=== PATIENT | male | born 1980 | race Caucasian/White ===

== ENCOUNTER 2016-11-03 17:25 | Inpatient (IN) | payer MEDICAID ==
[2016-11-03] MEDS ORDERED: NS 1,000 ML IV ONE (17:50)
[2016-11-03] MEDS ORDERED: HYDROmorphONE/DILAUDID 1 MG/ML SYR IVP ONE (17:50)
[2016-11-03] MEDS ORDERED: ONDANSETRON 4 MG/2 ML VIAL ONE ×2 (17:52→21:35)
[2016-11-03] MEDS ORDERED: PIPERACILLIN/TAZO 3.375 GM/DEX 50 ML IV ONE ×2 (18:09→18:30)
[2016-11-03] MEDS ORDERED: VANCOMYCIN HCL/NORMAL SALINE 250 ML IV ONE (18:09)
[2016-11-03 18:13] LABS: % IMMATURE GRANULYOCYTES 0.6 % (0.0-1.1); ABSOLUTE IMMATURE GRANULOCYTES 0.06 10^3/uL (0.00-0.10); ADD DIFF? NO; ADD MORPH? NO; ADD SCAN? NO; ATYPICAL LYMPHOCYTE FLAG 30 (0-99); FRAGMENT RBC FLAG 0 (0-99); HEMATOCRIT 37.1 % (40.0-51.0); HEMOGLOBIN 12.6 g/dL (13.7-17.5); LEFT SHIFT FLG 40 (0-99); LIPEMIA HEMOLYSIS FLAG 90 (0-99); MEAN CELL VOLUME 91.4 fL (81.5-99.8); MEAN PLATELET VOLUME 10.3 fL (8.7-11.7); PLATELET CLUMPS FLAG 0 (0-99); PLATELET COUNT 153 10^3/uL (150-400); RED BLOOD CELL COUNT 4.06 10^6/uL (4.40-6.38); RED CELL DISTRIBUTION WIDTH 13.5 % (11.5-15.2)
[2016-11-03] MEDS ORDERED: IOPAMIDOL (ISOVUE-300) 100 ML BTL IV ONE ×3 (18:15→19:15)
[2016-11-03 18:28] LABS: ANION GAP 9 mEq/L (8-16); CALCIUM 8.6 mg/dL (8.5-10.4); CARBON DIOXIDE 24 mEq/l (22-31); CHLORIDE 103 mEq/L (97-110); CREATININE 0.8 mg/dL (0.7-1.3); GLOMERULAR FILTRATION RATE > 60; GLUCOSE 120 mg/dL (70-100); POTASSIUM 3.4 mEq/L (3.5-5.2); SODIUM 136 mEq/L (134-144)
[2016-11-03] MEDS ORDERED: PIPERACILLIN SODIUM/TAZOBACTAM 3.375 GM in D5W 50 ML IV ONE (18:30)
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
[2016-11-03] MEDS ORDERED: BUPIVACAINE/EPI 0.5% 30 ML SDV ONE (20:27)
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
[2016-11-03] MEDS ORDERED: CITRIC ACID/SODIUM CITRATE 30 ML UDCUP ONE (20:53)
[2016-11-03] MEDS ORDERED: MIDAZOLAM 2 MG/2 ML VIAL ONE (20:55)
[2016-11-03] MEDS ORDERED: CITRIC ACID/SODIUM CITRATE 30 ML UDCUP PO ONE (21:00)
[2016-11-03] MEDS ORDERED: fentaNYL 250 MCG/5 ML INJ ONE (21:03)
[2016-11-03] MEDS ORDERED: PROPOFOL 200 MG/20 ML VIAL ONE (21:04)
[2016-11-03] MEDS ORDERED: ROCURONIUM 50 MG/5 ML VIAL ONE (21:07)
[2016-11-03] MEDS ORDERED: DEXAMETHASONE 4 MG/ML VIAL ONE (21:35)
[2016-11-03] MEDS ORDERED: SUGAMMADEX SODIUM 200 MG/2 ML VIAL IVP ONE (21:44)
[2016-11-03] MEDS ORDERED: ONDANSETRON 4 MG/2 ML VIAL IVP PRN (22:20)
[2016-11-03] MEDS ORDERED: ACETAMINOPHEN 325 MG TAB PO PRN (22:20)
[2016-11-03] MEDS ORDERED: LACTULOSE 20 GM/30 ML UDCUP PO PRN (22:20)
[2016-11-03] MEDS ORDERED: BISACODYL 10 MG SUPP PR PRN (22:20)
[2016-11-03] MEDS ORDERED: POLYETHYLENE GLYCOL 3350 17 GM PKT PO PRN (22:20)
[2016-11-03] MEDS ORDERED: MAGNESIUM HYDROXIDE 30 ML UDCUP PO PRN (22:20)
[2016-11-03] MEDS ORDERED: fentaNYL 100 MCG/2 ML INJ ONE (22:47)
--- NOTE | 2016-11-03 22:56 | POSTOPPROG ---
Post Op Note Date of Operation: 11/03/16 Surgeon: Eleonora Cox Anesthesiologist: daniel Anesthesia: GET(General Endotracheal) Pre-op Diagnosis: perirectal abscess Post-op Diagnosis: same Indication: 36 yo with perirectal abscess Procedure: eua and drainage of perirectal abscess Findings: depth greater than 10 cm goes anterior and posterior Inf/Abcess present in the surg proc area at time of surgery?: Yes Depth: Superfical (Skin SQ) EBL: Minimal Specimen(s): fluid for micro
[2016-11-03] MEDS: OXYCODONE/APAP 5/325 TAB PO PRN (23:29)
[2016-11-04] MEDS ORDERED: PIPERACILLIN/TAZO 3.375 GM/DEX 50 ML IV SCH
[2016-11-04] MEDS: PIPERACILLIN SODIUM/TAZOBACTAM 3.375 GM in D5W 50 ML IV SCH ×4 (00:04→17:48)
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
[2016-11-04] MEDS: OXYCODONE/APAP 5/325 TAB PO PRN (04:44)
[2016-11-04 05:25] LABS: % IMMATURE GRANULYOCYTES 0.3 % (0.0-1.1); ABSOLUTE IMMATURE GRANULOCYTES 0.03 10^3/uL (0.00-0.10); ADD DIFF? NO; ADD MORPH? NO; ADD SCAN? NO; ATYPICAL LYMPHOCYTE FLAG 40 (0-99); FRAGMENT RBC FLAG 0 (0-99); HEMATOCRIT 36.6 % (40.0-51.0); LEFT SHIFT FLG 80 (0-99); LIPEMIA HEMOLYSIS FLAG 80 (0-99); MEAN CELL HEMOGLOBIN 29.9 pg (27.9-34.1); MEAN CELL HEMOGLOBIN CONCENTR. 32.8 g/dL (32.4-36.7); MEAN CELL VOLUME 91.3 fL (81.5-99.8); MEAN PLATELET VOLUME 10.9 fL (8.7-11.7); PLATELET CLUMPS FLAG 0 (0-99); PLATELET COUNT 160 10^3/uL (150-400); RED BLOOD CELL COUNT 4.01 10^6/uL (4.40-6.38); RED CELL DISTRIBUTION WIDTH 13.6 % (11.5-15.2)
[2016-11-04 05:27] LABS: ANION GAP 8 mEq/L (8-16); CALCIUM 8.6 mg/dL (8.5-10.4); CARBON DIOXIDE 25 mEq/l (22-31); CHLORIDE 106 mEq/L (97-110); CREATININE 0.8 mg/dL (0.7-1.3); GLOMERULAR FILTRATION RATE > 60; GLUCOSE 166 mg/dL (70-100); POTASSIUM 4.6 mEq/L (3.5-5.2); SODIUM 139 mEq/L (134-144)
[2016-11-04] MEDS: VANCOMYCIN 1.25 GM in D5W 250 ML IV SCH ×2 (06:26→17:57)
[2016-11-04] MEDS: SENNOSIDES/DOCUSATE SODIUM TAB PO SCH ×2 (09:06→20:49)
[2016-11-04] MEDS: HYDROCODONE/APAP 5/325 TAB PO PRN ×3 (12:33→20:48)
--- NOTE | 2016-11-04 15:39 | SOAPPROG ---
SOAP Progress Note Assessment/Plan: Assessment: s/p drainage of large perirectal abscess 10 cm deep [place] in place may shower Change abd prn Still with some erythema and induration - continue zosyn IV drug abuse (sober x 6 days but had syringe of meth in underware on arrival) Discussion regarding po pain meds vs IV pain meds. Encouraged po. Stated would send home with rx for narcotics NO refills and antibiotics He has money for scripts needing erythema and induration to improve prior to discharge S: Feeling better O: Irrigated wound purulent drainage erythema and induration improving Plan: 11/04/16 15:35 Objective: Vital Signs Temp Pulse Resp BP Pulse Ox 36.9 C 57 L 15 95/56 L 96 11/04/16 12:50 11/04/16 12:50 11/04/16 12:50 11/04/16 12:50 11/04/16 12:50 Microbiology 11/03/16 21:40 Gram Stain - Final Buttock - Aspirate Laboratory Results 11/04/16 04:30 11/04/16 04:30 11/03/16 11/04/16 11/05/16 05:59 05:59 05:59 Intake Total 1715 Output Total 1010 300 Balance 705 -300 ICD10 Worksheet Patient Problems: Problems Problem Status Onset Abscess Acute Cellulitis of buttock Acute
[2016-11-05] MEDS: HYDROCODONE/APAP 5/325 TAB PO PRN ×5 (00:44→21:33)
[2016-11-05] MEDS: PIPERACILLIN SODIUM/TAZOBACTAM 3.375 GM in D5W 50 ML IV SCH ×3 (00:44→13:11)
[2016-11-05 06:06] LABS: % IMMATURE GRANULYOCYTES 0.5 % (0.0-1.1); ABSOLUTE IMMATURE GRANULOCYTES 0.04 10^3/uL (0.00-0.10); ADD DIFF? NO; ADD MORPH? NO; ADD SCAN? NO; ATYPICAL LYMPHOCYTE FLAG 90 (0-99); FRAGMENT RBC FLAG 0 (0-99); HEMOGLOBIN 11.5 g/dL (13.7-17.5); LEFT SHIFT FLG 30 (0-99); LIPEMIA HEMOLYSIS FLAG 80 (0-99); MEAN CELL HEMOGLOBIN 30.2 pg (27.9-34.1); MEAN CELL HEMOGLOBIN CONCENTR. 32.9 g/dL (32.4-36.7); MEAN CELL VOLUME 91.9 fL (81.5-99.8); MEAN PLATELET VOLUME 10.9 fL (8.7-11.7); PLATELET CLUMPS FLAG 10 (0-99); PLATELET COUNT 174 10^3/uL (150-400); RED BLOOD CELL COUNT 3.81 10^6/uL (4.40-6.38); RED CELL DISTRIBUTION WIDTH 13.5 % (11.5-15.2)
[2016-11-05] MEDS: VANCOMYCIN 1.25 GM in D5W 250 ML IV SCH (06:26)
[2016-11-05] MEDS: SENNOSIDES/DOCUSATE SODIUM TAB PO SCH ×2 (09:30→21:32)
[2016-11-05] MEDS: HYDROmorphONE/DILAUDID 1 MG/ML SYR IVP PRN ×2 (09:50→21:11)
--- NOTE | 2016-11-05 12:31 | SOAPPROG ---
SOAP Progress Note Assessment/Plan: Assessment: 36yo M s/p drainage for large perirectal abscess, 10cm deep and tracking anteriorly towards scrotum, MRSA [place] in place Erythema and induration improved Zosyn and Vanco, awaiting final cultures may shower Change abd prn Ortho consult for shoulder separation, healed nonunion fracture Homelessness - dispo planning with case management H/o IVDU, strongly encouraged to avoid IV pain meds S: Feeling better, reports pain in his right shoulder and legs. O: Laying in bed, NAD obvious R shoulder deformity Perirectal incision with minimal erythema and induration. Mildly tender to palpation. Purulent drainage Objective: Vital Signs Temp Pulse Resp BP Pulse Ox 36.3 C 62 16 98/67 L 100 11/05/16 08:15 11/05/16 08:15 11/05/16 08:15 11/05/16 08:15 11/05/16 08:15 Microbiology 11/03/16 21:40 Gram Stain - Final Buttock - Aspirate Laboratory Results 11/05/16 05:00 11/04/16 04:30 11/04/16 11/05/16 11/06/16 05:59 05:59 05:59 Intake Total 1715 1100 1008 Output Total 1010 1300 650 Balance 705 -200 358 ICD10 Worksheet Patient Problems: Problems Problem Status Onset Abscess Acute Cellulitis of buttock Acute
[2016-11-05] MEDS: IBUPROFEN 600 MG TAB PO PRN ×2 (13:13→21:33)
[2016-11-05] MEDS: VARENICLINE TARTRATE 0.5 MG TAB PO SCH (13:18)
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
[2016-11-05] MEDS: DOXYCYCLINE HYCLATE 100 MG CAP/TAB PO SCH (21:35)
[2016-11-06] MEDS: HYDROCODONE/APAP 5/325 TAB PO PRN ×3 (01:41→13:56)
[2016-11-06] MEDS: HYDROmorphONE/DILAUDID 1 MG/ML SYR IVP PRN ×2 (06:43→11:50)
[2016-11-06] MEDS: DOXYCYCLINE HYCLATE 100 MG CAP/TAB PO SCH (09:16)
[2016-11-06] MEDS: VARENICLINE TARTRATE 0.5 MG TAB PO SCH (09:16)
[2016-11-06] MEDS: SENNOSIDES/DOCUSATE SODIUM TAB PO SCH (09:16)
--- NOTE | 2016-11-06 12:12 | SOAPPROG ---
SOAP Progress Note Assessment/Plan: Assessment: 36yo M s/p drainage for large perirectal abscess, 10cm deep and tracking anteriorly towards scrotum, MRSA, h/o IVDU [place] in place Erythema and induration nearly resolved PO norco PO doxy may shower Change abd prn Dr. Mitchell recommended outpatient follow-up for AC separation, nonop at this time Ortho consult for shoulder separation, healed nonunion fracture Dispo: patient is homeless. Ready for d/c today. Will discuss dispo with case management. F/u 1 week, may shower. Seen with Dr. Cox S: Feeling better, a little more rectal pain today. no fevers or chills. O: Laying in bed, NAD obvious R shoulder deformity Perirectal incision with mild erythema and induration. Mildly tender to palpation. Purulent drainage. irrigated with NS 11/06/16 12:11 Objective: Vital Signs Temp Pulse Resp BP Pulse Ox 36.8 C 69 15 93/54 L 97 11/06/16 06:32 11/06/16 06:32 11/06/16 06:32 11/06/16 06:32 11/06/16 06:32 Microbiology 11/03/16 21:40 Gram Stain - Final Buttock - Aspirate Laboratory Results 11/05/16 05:00 11/04/16 04:30 11/05/16 11/06/16 11/07/16 05:59 05:59 05:59 Intake Total 1100 3308 Output Total 1300 3250 Balance -200 58 ICD10 Worksheet Patient Problems: Problems Problem Status Onset Abscess Acute Cellulitis of buttock Acute
[2016-11-06 15:20] VITALS: BP 101/65; PULSE 70; RESP 16; TEMP 97.7; O2SAT 96
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
== END 2016-11-06 16:19 | disposition home or self-care (01) | DRG 331 ==
LOC: EDUNIT# → F3N 23:03 → F1N 11-04 18:47
PROVIDERS: ADMIT Surgery; ATTEND Surgery
PROC: 0D9P00Z Drainage of Rectum with Drainage Device, Open Approach (ICD-10-PCS; principal; 2016-11-03 21:04)
PROC: 0D9P3ZX Drainage of Rectum, Percutaneous Approach, Diagnostic (ICD-10-PCS; principal; 2016-11-03 21:04)
DX: K61.1 Rectal abscess (principal); S43.101A Unspecified dislocation of right acromioclavicular joint, initial encounter; X58.XXXA Exposure to other specified factors, initial encounter; F17.210 Nicotine dependence, cigarettes, uncomplicated; Z59.0 Homelessness
CPT/HCPCS: 96365; J1100; J1170; J2250; J2405; J2543; J2704; J3010; J3370; Q9967

== ENCOUNTER 2016-11-09 19:08 | Emergency (ER) | payer MEDICAID ==
[2016-11-09] MEDS ORDERED: fentaNYL 100 MCG/2 ML INJ ONE (19:09)
[2016-11-09 19:25] VITALS: TEMP 97.5
--- NOTE | 2016-11-09 19:49 | EDPHY ---
H & P Time Seen by Provider: 11/09/16 19:10 HPI/ROS: CHIEF COMPLAINT: Drain removal HISTORY OF PRESENT ILLNESS: 36-year-old homeless male presents to the emergency department by ambulance requesting removal of drain from a perirectal abscess. The patient was admitted to the hospital and had incision and drainage of his perirectal abscess by Dr. Eleonora Cox in the OR on November 03, 2016. He denies abdominal pain. He has been taking his antibiotics as prescribed. It was MRSA positive. REVIEW OF SYSTEMS: Constitutional: No fever, no chills. Eyes: No double or blurry vision. ENT: No sore throat. Respiratory: No cough, no shortness of breath. Cardiac: No chest pain. Gastrointestinal: No abdominal pain, vomiting or diarrhea. Genitourinary: No dysuria. Musculoskeletal: No neck or back pain. Skin: No rashes. Neurological: No headache. Past Medical/Surgical History: Perirectal abscess drained November 03, 2016 Social History: Homeless Smoking Status: Heavy smoker Physical Exam: General Appearance: Alert, no distress. He smells strongly of alcohol. Eyes: Pupils equal and round. Extraocular motions are all intact. ENT: Mouth: Mucous membranes moist. Respiratory: No wheezing, rhonchi, or rales, lungs are clear to auscultation. Cardiovascular: Regular rate and rhythm. Gastrointestinal: Abdomen is soft and nontender, no masses, no rebound or guarding, bowel sounds normal. Neurological: Alert and oriented x 3, cranial nerves II through XII grossly intact Skin: The patient has a [place] drain sutured in his right perirectal abscess. No drainage from the wound currently. No induration. Minimally tender to palpate. Warm and dry, no rashes. Musculoskeletal: Nontender to palpate along the cervical, thoracic or lumbar spine. Neck is supple. Extremities: Full range of motion and no peripheral edema. Psychiatric: Patient is oriented X 3, there is no agitation. Constitutional: Initial Vital Signs Temperature (C) 36.4 C 11/09/16 19:23 Heart Rate 72 11/09/16 19:23 Respiratory Rate 20 11/09/16 19:23 Blood Pressure 109/69 11/09/16 19:23 O2 Sat (%) 95 11/09/16 19:23 O2 Delivery Mode Room Air Allergies/Adverse Reactions: Sulfa (Sulfonamide Antibiotics) Allergy (Verified 11/09/16 19:23) Home Medications: Medication Instructions Recorded Doxycycline Hyclate [Vibramycin 100 mg PO BID #30 capsule 11/06/16 100 MG (*)] Hydrocodone/APAP 5/325 [[place] 1 - 2 tab PO Q4HRS PRN #30 tab 11/06/16 5/325 (*)] Medical Decision Making ED Course/Re-evaluation: ETOH breath was 0.195 36-year-old male presents for drain removal. The drain was easily removed after the sutures were removed. No further drainage. No packing placed. Patient was encouraged to continue antibiotics as prescribed. Also instructed to follow up with Dr. Eleonora Cox. The patient is currently staying in a respite bed at the residential that was arranged by case management. Differential Diagnosis: Including but not limited to perirectal abscess, fistula, cellulitis, sepsis, alcohol intoxication Departure - Departure Disposition: Home, Routine, Self-Care Clinical Impression: Recheck Perirectal abscess Condition: Good Instructions: Abscess Follow-up (ED) Additional Instructions: Your drain has been removed. Continue doxycycline as prescribed twice daily. Return to the emergency department if he developed increasing pain, further drainage from your wound, fever, or if you feel worse in any way. Referrals: Eleonora Cox MD [Medical Doctor] - 1-2 days without fail (General surgeon)
[2016-11-09 20:22] VITALS: BP 120/80; PULSE 76; RESP 12; O2SAT 94
== END 2016-11-09 20:20 | disposition home or self-care (01) ==
LOC: EDUNIT#
DX: Z48.01 Encounter for change or removal of surgical wound dressing (principal); F17.200 Nicotine dependence, unspecified, uncomplicated
CPT/HCPCS: J3010

== ENCOUNTER 2018-08-27 17:46 | Emergency (ER) | payer MEDICAID ==
--- NOTE | 2018-08-27 17:51 | EDPHY ---
H & P Time Seen by Provider: 08/27/18 17:48 HPI/ROS: CHIEF COMPLAINT: Suspected alcohol abuse HISTORY OF PRESENT ILLNESS: 38 year old male arrives via ambulance for suspected alcohol abuse. Patient found sleeping outside with a bottle of alcohol next to him. Patient unable to ambulate without assistance. No reports of trauma or assault. No fall from height. No structures of height near patient. Patient is on an arc hold. REVIEW OF SYSTEMS: 10 systems reviewed and negative with the exception of the elements mentioned in the history of present illness PAST MEDICAL/SURGICAL HISTORY: no anticoagulant use, no relevant medical/ surgical history SOCIAL HISTORY: Positive for witnessed and self disclosed alcohol use PHYSICAL EXAM 1) GENERAL: poorly kept, foul smelling, alert and oriented. Appears to be in no acute distress. Answering questions appropriately.Smells of alcohol. 2) HEAD: Normocephalic, atraumatic 3) HEENT: Pupils equal, round, reactive to light bilaterally. Negative Horners. Nasopharynx, oropharynx, clear. No deformity or angulation of nose. No septal hematoma. No rhinorrhea. No oral trauma. Ears bilaterally with normal tympanic membranes. No hemotympanum. No fluid or blood in the external auditory canal. No raccoon eyes. No King sign. Teeth are normally aligned with no gross malocclusion, TMJ bilaterally nontender, facial bones nontender including the zygomatic arch, maxilla mandible. 4) NECK: No cervical collar is on. Posterior cervical spine is nontender, no stepoff, no effusion. Full range of motion which does not elicit any midline cervical spine pain, no posterior midline tenderness, no step-off. 5) LUNGS: Clear to auscultation bilaterally, no wheezes, no rhonchi, no retractions. No obvious signs of trauma. No chest wall pain. No flaring, no grunting. Moving symmetrically. No crepitus. 6) HEART: [Regular rate and rhythm, 7) ABDOMEN: No guarding, no rebound, no focal tenderness, no peritoneal signs, no signs of trauma, no ecchymosis 8) MUSCULOSKELETAL: Moving all extremities, no focal areas of tenderness, no obvious trauma. 9) BACK: No midline vertebral tenderness, no fluctuance, no step-off, no obvious trauma, no visual or palpable abnormality. 10) SKIN: No laceration. No abrasion DIFFERENTIAL DIAGNOSIS: In no particular orderincluding but not limited to hypoglycemia, infectious process, electrolyte abnormality, head injury and intoxicants. Smoking Status: Heavy smoker Constitutional: Initial Vital Signs Temperature (C) 36.7 C 08/27/18 17:50 Heart Rate 78 08/27/18 17:50 Respiratory Rate 16 08/27/18 17:50 Blood Pressure 117/86 H 08/27/18 17:50 O2 Sat (%) 91 L 08/27/18 17:50 O2 Delivery Mode Room Air O2 (L/minute) 1 Allergies/Adverse Reactions: Sulfa (Sulfonamide Antibiotics) Allergy (Verified 11/09/16 19:23) Home Medications: Medication Instructions Recorded Doxycycline Hyclate [Vibramycin 100 mg PO BID #30 capsule 11/06/16 100 MG (*)] Hydrocodone/APAP 5/325 [[place] 1 - 2 tab PO Q4HRS PRN #30 tab 11/06/16 5/325 (*)] MDM/Departure - MDM Medications Given: Discontinued Medications Chlordiazepoxide (Librium 25 Mg Prepack#6) 1 btl TAKEHOME EDNOW ONE Stop: 08/27/18 20:23 Last Admin: 08/27/18 20:25 Dose: 1 btl ED Course/Re-evaluation: 5:52 p.m.: Patient [facility]. Smells of alcohol. He will be observed in the ER and allowed to sober in the ER until he can be reexamined more appropriately. Care of patient under supervision of secondary supervising physician Dr Alarcon with whom I discussed case. 8:18 p.m.: Patient awake alert ambulatory without assistance, clear speech pattern. He will be discharged to the [facility] - Depart Disposition: Home, Routine, Self-Care Clinical Impression: Alcoholic intoxication Qualifiers: Complication of substance-induced condition: uncomplicated Qualified Code(s): F10.920 - Alcohol use, unspecified with intoxication, uncomplicated Condition: Good Instructions: Chlordiazepoxide (By mouth), Alcohol Intoxication (ED) Additional Instructions: Please exercise moderation with alcohol Referrals: [facility] [Outside] - As per Instructions
[2018-08-27] MEDS ORDERED: CHLORDIAZEPOXIDE 25MG PREPK#6 BTL TAKEHOME ONE (20:22)
[2018-08-27 20:44] VITALS: BP 141/66
== END 2018-08-27 20:51 | disposition home or self-care (01) ==
LOC: EDUNIT#
DX: F10.920 Alcohol use, unspecified with intoxication, uncomplicated (principal)
CPT/HCPCS: G0480

== ENCOUNTER 2018-10-15 20:05 | Emergency (ER) | payer MEDICAID ==
--- NOTE | 2018-10-15 20:44 | EDPHY ---
H & P Smoking Status: Heavy smoker Time Seen by Provider: 10/15/18 20:09 HPI/ROS: HPI Alcohol intoxication. 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 He is on an arc. Intoxicated, unable to ambulate according to police, found in courtyard of homeless senior care. No history of traumatic injury. He complained to police of left knee pain. He is homeless. ROS: Constitutional: No fever, no chills. No weakness. Eyes: No discharge. No changes in vision. ENT: No sore throat. No nasal congestion or rhinorrhea. Respiratory: No cough. No shortness of breath. Cardiac: No chest pain, no palpitations. Gastrointestinal: No abdominal pain, no vomiting, no diarrhea. Genitourinary: No hematuria. No dysuria or increased frequency with urination. Musculoskeletal: No back pain. No neck pain. No myalgias or arthralgias. Skin: No rashes. Neurological: No headache. No focal weakness or altered sensation. Past medical history: Bipolar, anxiety, attention deficit hyperactivity disorder, numerous orthopedic injuries, homeless, alcohol abuse. Social history: Alcohol and substance abuse, homeless. Physical Exam: General Appearance: Alert, intoxicated, strong odor of alcohol on his breath. This patient is responding to questions appropriately and in full sentences albeit with slurred speech. This patient appears well-hydrated and well- nourished. Head: Normocephalic atraumatic. Eyes: Pupils equal and round no pallor or injection. No lid edema, erythema or injection. ENT, Mouth: Mucous membranes are moist. The pharyngeal tissues are unremarkable. No edema or swelling. No asymmetry suggestive of abscess. No erythema or exudates. Respiratory: There are no retractions, lungs are clear to auscultation with good air movement bilaterally. Cardiovascular: Regular rate and rhythm. No murmur. Gastrointestinal: Abdomen is soft and nontender, no masses, bowel sounds normal. No focal tenderness at McBurney's point. No Bhatt sign. Neurological: Motor sensory function is grossly intact. Cranial nerves are normal. Gait is normal. Skin: Warm and dry, no rashes. No lacerations or abrasions. Musculoskeletal: Neck is supple and nontender. Left knee exam: Nontender on palpation. No effusion. No pain with axial compression. Stable to valgus and varus stress testing. Extremities are symmetrical. All joints range without pain or impingement. Psychiatric: No agitation. No depression. Database: EKG: Imaging: Procedures: Emergency department course: Triage vital signs reviewed and are normal. Patient's care turned over to physician assistant professor of theater Jose Barker at 9:00 p.m.. Expected disposition is discharged to the arc when appropriately sober. The patient's remaining emergency department course under my care has been uneventful. Differential Diagnosis: The differential diagnosis on this patient includes but is not limited to alcohol intoxication. Traumatic brain injury, other significant traumatic injury unlikely. This represents a partial list of diagnoses considered. These considerations are based on history, physical exam, past history, reassessment and diagnostic testing. (Penny Aguilar) Constitutional: Initial Vital Signs Temperature (C) 36.2 C 10/15/18 20:10 Heart Rate 73 10/15/18 20:10 Respiratory Rate 18 10/15/18 20:10 Blood Pressure 117/88 H 10/15/18 20:10 O2 Sat (%) 97 10/15/18 20:10 O2 Delivery Mode Room Air O2 (L/minute) 2 Allergies/Adverse Reactions: Sulfa (Sulfonamide Antibiotics) Allergy (Verified 10/15/18 20:10) Home Medications: Medication Instructions Recorded Doxycycline Hyclate [Vibramycin 100 mg PO BID #30 capsule 11/06/16 100 MG (*)] Hydrocodone/APAP 5/325 [[place] 1 - 2 tab PO Q4HRS PRN #30 tab 11/06/16 5/325 (*)] Medical Decision Making ED Course/Re-evaluation: 11:45 p.m.: Patient is awake alert oriented to person place time events, he has a clear speech pattern, he has been observed ambulating. He is yelling and cursing at staff. He is complaining of left knee pain with ambulation. he will not inform me of the duration of his left knee pain or if he experienced any trauma to the knee. I examined his left knee and he is tender to palpation to the left lateral aspect with no visible signs of trauma, no ecchymosis, no soft tissue swelling, negative Homans. Soft compartments throughout. Proximally and distally nontender. I ordered an x-ray of the left knee. Patient subsequently declined this x-ray, threatened ER staff with physical harm if an xray was performed. At this time I am concerned about the risk to ER staff . I warned patient of the risks of declining this including, but not limited to, nondiagnosed fracture. Doubt septic arthritis. He will be [facility] transported by law enforcement (Perez Barker) Departure - Departure Disposition: Home, Routine, Self-Care Clinical Impression: Alcohol intoxication Condition: Good Instructions: Abuse of Alcohol (ED) Additional Instructions: Read and follow provided instructions. Return to the emergency department for worsening symptoms or other serious concerns. Referrals: [facility] [Outside] - As per Instructions
[2018-10-15 22:37] VITALS: BP 101/66
== END 2018-10-16 00:15 | disposition home or self-care (01) ==
LOC: EDUNIT#
DX: F10.920 Alcohol use, unspecified with intoxication, uncomplicated (principal); M25.562 Pain in left knee; Z59.0 Homelessness

== ENCOUNTER 2019-01-06 22:07 | Emergency (ER) | payer MEDICAID ==
--- NOTE | 2019-01-06 22:15 | EDPHY ---
H & P Stated Complaint: ETOH, BGL 160 - Personal History Tetanus Vaccine Date: 2014 - Medical/Surgical History Hx Asthma: No Hx Chronic Respiratory Disease: No Hx Diabetes: No Hx Cardiac Disease: No Hx Renal Disease: No Hx Cirrhosis: No Hx Alcoholism: Yes Hx HIV/AIDS: No Hx Splenectomy or Spleen Trauma: No Other PMH: bipolar,anxiety, adhd, BPD,. numerous bone fractures, alcoholism and. homeless - Social History Smoking Status: Heavy smoker Time Seen by Provider: 01/06/19 22:07 HPI/ROS: CHIEF COMPLAINT: Suspected alcohol abuse HISTORY OF PRESENT ILLNESS: 38 year old homeless male arrives via ambulance accompanied by police for suspected alcohol abuse. Patient unable to ambulate without assistance. No reports of trauma or assault. No fall from height. No structures of height near patient. Patient is on an [facility] hold Pre-hospital serum glucose 160 REVIEW OF SYSTEMS: 10 systems reviewed and negative with the exception of the elements mentioned in the history of present illness PAST MEDICAL/SURGICAL HISTORY: no anticoagulant use, no relevant medical/ surgical history SOCIAL HISTORY: Positive for witnessed and self disclosed alcohol use PHYSICAL EXAM 1) GENERAL: foul-smelling, cursingSmells of alcohol. 2) HEAD: Normocephalic, atraumatic 3) HEENT: Pupils equal, round, reactive to light bilaterally. Negative Horners. Nasopharynx, oropharynx, clear. No deformity or angulation of nose. No septal hematoma. No rhinorrhea. No oral trauma. Ears bilaterally with normal tympanic membranes. No hemotympanum. No fluid or blood in the external auditory canal. No raccoon eyes. No King sign. Teeth are normally aligned with no gross malocclusion, TMJ bilaterally nontender, facial bones nontender including the zygomatic arch, maxilla mandible. 4) NECK: No cervical collar is on. Posterior cervical spine is nontender, no stepoff, no effusion. Full range of motion which does not elicit any midline cervical spine pain, no posterior midline tenderness, no step-off. Cervical collar is on.Cervical collar is removed while holding inline traction and patient is unable to completely differentiate between true midline pain versus just lateral of midline pain.Cervical collar is replaced at that point.and patient has no complaints of midline cervical pain, no effusion noted, trachea midline, no JVD. 5) LUNGS: Clear to auscultation bilaterally, no wheezes, no rhonchi, no retractions. No obvious signs of trauma. No chest wall pain. No flaring, no grunting. Moving symmetrically. No crepitus. 6) HEART: [Regular rate and rhythm, 7) ABDOMEN: No guarding, no rebound, no focal tenderness, no peritoneal signs, no signs of trauma, no ecchymosis 8) MUSCULOSKELETAL: Moving all extremities, no focal areas of tenderness, no obvious trauma. 9) BACK: No midline vertebral tenderness, no fluctuance, no step-off, no obvious trauma, no visual or palpable abnormality. 10) SKIN: No laceration. No abrasion DIFFERENTIAL DIAGNOSIS: In no particular orderincluding but not limited to hypoglycemia, infectious process, electrolyte abnormality, head injury and intoxicants. (Perez Barker) Constitutional: Initial Vital Signs Temperature (C) 36.2 C 01/06/19 22:12 Heart Rate 84 01/06/19 22:12 Respiratory Rate 16 01/06/19 22:12 Blood Pressure 142/98 H 01/06/19 22:12 O2 Sat (%) 92 01/06/19 22:12 O2 Delivery Mode Room Air O2 (L/minute) 2 Allergies/Adverse Reactions: Sulfa (Sulfonamide Antibiotics) Allergy (Verified 01/07/19 16:34) Home Medications: Medication Instructions Recorded Doxycycline Hyclate [Vibramycin 100 mg PO BID #30 capsule 11/06/16 100 MG (*)] Hydrocodone/APAP 5/325 [[place] 1 - 2 tab PO Q4HRS PRN #30 tab 11/06/16 5/325 (*)] Medical Decision Making ED Course/Re-evaluation: 10:52 p.m.: Patient increasingly agitated at this time, yelling. Will be given intramuscular Zyprexa for the protection of the patient and staff. He will be observed in the ER. Midnight: Care turned over to Dr. Renny Simon (Perez Barker) Other Provider: 1650 care assumed from OR pending improvement in sobriety. 0330 patient is awake alert, ambulating unassisted to the bathroom. Patient is medically cleared for detox. (Festus Simon) - Data Points Medications Given: Discontinued Medications Chlordiazepoxide (Librium 25 Mg Prepack#6) 1 btl TAKEHOME EDNOW ONE Stop: 01/06/19 22:42 Last Admin: 01/06/19 23:03 Dose: 1 btl Olanzapine (Zyprexa Injection) 10 mg IM EDNOW ONE Stop: 01/06/19 22:53 Last Admin: 01/06/19 23:02 Dose: 10 mg Departure - Departure Disposition: Home, Routine, Self-Care Clinical Impression: Alcohol abuse Condition: Good Instructions: Chlordiazepoxide (By mouth), Abuse of Alcohol (ED) Additional Instructions: Please consider long-term sobriety from alcohol. Referrals: [facility] [Outside] - As per Instructions
[2019-01-06] MEDS ORDERED: CHLORDIAZEPOXIDE 25MG PREPK#6 BTL TAKEHOME ONE (22:41)
[2019-01-06] MEDS ORDERED: OLANZapine 10 MG/2 ML VIAL IM ONE (22:52)
[2019-01-07 03:46] VITALS: BP 120/89
== END 2019-01-07 04:15 | disposition home or self-care (01) ==
LOC: EDUNIT#
DX: F10.10 Alcohol abuse, uncomplicated (principal); F31.9 Bipolar disorder, unspecified; F41.9 Anxiety disorder, unspecified; Z59.0 Homelessness

== ENCOUNTER 2019-01-07 16:30 | Emergency (ER) | payer MEDICAID ==
--- NOTE | 2019-01-07 16:34 | EDPHY ---
H & P Source: Patient, Police, RN/MD, EMS Exam Limitations: Intoxication - Personal History Tetanus Vaccine Date: 2014 - Medical/Surgical History Hx Asthma: No Hx Chronic Respiratory Disease: No Hx Diabetes: No Hx Cardiac Disease: No Hx Renal Disease: No Hx Cirrhosis: No Hx Alcoholism: Yes Hx HIV/AIDS: No Hx Splenectomy or Spleen Trauma: No Other PMH: bipolar,anxiety, adhd, BPD,. numerous bone fractures, alcoholism and. homeless - Social History Smoking Status: Heavy smoker Time Seen by Provider: 01/07/19 16:32 HPI/ROS: HPI: This is a 38-year-old male who presents with Chief Complaint: Alcohol intoxication, [facility] Location: Psychiatric Quality: Alcohol intoxication Duration: Unknown Signs and Symptoms: no fever, no nausea, no vomiting, no hematemesis, no blood in stool, no abdominal bloating, no diarrhea, no back pain, no urinary symptoms , no testicular/groin pain, no indigestion, no chest pain, no shortness of breath Timing: Acute on chronic Severity: Moderate Context: Patient presents via EMS on [facility] from [facility] police as bystanders called 911 to notify them that patient was running in and out of traffic. Upon arrival to the patient, EMS noted that patient was intoxicated and he admits to drinking alcohol today. He was unable to stand on his own so they placed on [facility] hold and brought him to the emergency room. He was seen in this emergency room room last night for the same. He is welcome at the [facility]. No history of fall or trauma. Denies homicidal ideation, suicidal ideation, hallucinations. Patient endorses history of alcohol withdrawal symptoms but no alcohol withdrawal seizures or inpatient admission for alcohol withdrawal. Modifying Factors: None Comment: ROS: A comprehensive 10 system review of systems is otherwise negative aside from elements mentioned in the history of present illness. MEDICAL/SURGICAL/SOCIAL HISTORY: Medical history: bipolar,anxiety, attention deficit hyperactivity disorder, numerous bone fractures, alcoholism Surgical history: Denies Social history: Heavy tobacco user. Homeless. Family history noncontributory. CONSTITUTIONAL: Intoxicated, yelling and uncooperative, white male, untidy, smells of alcohol, awake and alert, no obvious distress HEENT: Atraumatic and normocephalic, PERRL, EOMI. Nares patent; no rhinorrhea; no nasal mucosal edema. Tympanic membranes clear. Oropharynx clear, no exudate and moist pink mucosa. Airway patent. No lymphadenopathy. No meningismus. Cardiovascular: Normal S1/S2, regular rate, regular rhythm, without murmur rub or gallop. PULMONARY/CHEST: Symmetrical and nontender. Clear to auscultation bilaterally. Good air movement. No accessory muscle usage. ABDOMEN: Soft, nondistended, nontender, no rebound, no guarding, no peritoneal signs, no masses or organomegaly. No CVAT. EXTREMITIES: 2/2 pulses, strength 5/5, no deformities, no clubbing, no cyanosis or edema. NEUROLOGICAL: no focal neuro deficits. GCS 14. Speech slurred. Unable to ambulate without moderate assistance. Fine and large motor deficits noted. SKIN: Warm and dry, no erythema. no rash. Good capillary refill. (Jacklyn Zendejas) Constitutional: Initial Vital Signs Temperature (C) 36.9 C 01/07/19 16:34 Heart Rate 90 01/07/19 16:34 Respiratory Rate 16 01/07/19 16:34 Blood Pressure 141/92 H 01/07/19 16:34 O2 Sat (%) 96 01/07/19 16:34 O2 Delivery Mode Room Air O2 (L/minute) 2 Allergies/Adverse Reactions: Sulfa (Sulfonamide Antibiotics) Allergy (Verified 01/07/19 16:34) Home Medications: Medication Instructions Recorded Doxycycline Hyclate [Vibramycin 100 mg PO BID #30 capsule 11/06/16 100 MG (*)] Hydrocodone/APAP 5/325 [[place] 1 - 2 tab PO Q4HRS PRN #30 tab 11/06/16 5/325 (*)] Medical Decision Making ED Course/Re-evaluation: I assumed care of the patient at 5:20pm. Plan for continued ED soberity. 7:30 p.m.: The patient is now ambulatory will be discharged to the [facility] under the custody of police. (Enmanuel Fritz) Vital signs reviewed and stable upon arrival. Placed on cardiac specialist. Agree with [facility] hold. Breathalyzer= 1700: Reassessed patient who is sleeping soundly. 1710: End of shift. Signed over to Dr. Fritz pending patient having reassessment once more sober and able to ambulate without assistance. He will be discharged to the [facility] with Librium prepack. This patient was seen under the supervision of my secondary supervising physician. I evaluated and cared for this patient with attending. (Jacklyn Zendejas) Differential Diagnosis: Differential diagnosis includes but is not limited to major depression, anxiety disorder, schizophrenia, bipolar disorder, intoxicant use, suicidal ideation, psychosis, desmond, alcohol intoxication (Jacklyn Zendejas) - Data Points Medications Given: Discontinued Medications Chlordiazepoxide (Librium 25 Mg Prepack#6) 1 btl TAKEHOME EDNOW ONE Stop: 01/07/19 16:43 Last Admin: 01/07/19 19:28 Dose: 1 btl Departure - Departure Disposition: Home, Routine, Self-Care Clinical Impression: Alcoholic intoxication without complication, Alcohol abuse Condition: Good Instructions: Chlordiazepoxide/Clidinium (By mouth), Alcohol Intoxication (ED) , Abuse of Alcohol (ED) Referrals: [facility] [Outside] - As per Instructions
[2019-01-07] MEDS ORDERED: CHLORDIAZEPOXIDE 25MG PREPK#6 BTL TAKEHOME ONE ×2 (16:42→19:26)
[2019-01-07 19:32] VITALS: BP 121/87
== END 2019-01-07 23:28 | disposition home or self-care (01) ==
DX: F10.120 Alcohol abuse with intoxication, uncomplicated (principal); Z59.0 Homelessness

== ENCOUNTER 2019-01-09 23:44 | Emergency (ER) | payer MEDICAID ==
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
[2019-01-09] MEDS ORDERED: ONDANSETRON DISINTEGRATING 4 MG TAB PO ONE (23:52)
[2019-01-09] MEDS ORDERED: OLANZapine 10 MG/2 ML VIAL IM ONE (23:57)
[2019-01-10] MEDS ORDERED: OLANZapine DISINTEGR 10 MG TAB PO ONE (00:09)
[2019-01-10] MEDS ORDERED: ONDANSETRON DISINTEGRATING 4 MG TAB ONE (06:09)
[2019-01-10] MEDS ORDERED: MAG HYDROX/AL HYDROX/SIMETH 30 ML UDCUP ONE (06:10)
[2019-01-10] MEDS ORDERED: LIDOCAINE 2% VISCOUS 15 ML UDCUP ONE (06:10)
[2019-01-10] MEDS ORDERED: HYOSCYAMINE SULFATE 0.125 MG TAB ONE (06:11)
[2019-01-10] MEDS ORDERED: ONDANSETRON DISINTEGRATING 4 MG TAB PO ONE (06:14)
[2019-01-10] MEDS ORDERED: MAG HYDROX/AL HYDROX/SIMETH 30 ML UDCUP PO ONE (06:14)
[2019-01-10] MEDS ORDERED: LIDOCAINE 2% VISCOUS 15 ML UDCUP PO ONE (06:14)
[2019-01-10] MEDS ORDERED: HYOSCYAMINE SULFATE 0.125 MG TAB PO ONE (06:14)
== END 2019-01-10 06:16 | disposition home or self-care (01) ==
LOC: EDUNIT#
DX: F10.920 Alcohol use, unspecified with intoxication, uncomplicated (principal)

== ENCOUNTER 2019-01-17 03:12 | Inpatient (IN) | payer MEDICAID ==
[2019-01-17] MEDS ORDERED: MIDAZOLAM 10 MG/2 ML VIAL IM ONE (03:23)
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
[2019-01-17] MEDS ORDERED: OLANZapine 10 MG/2 ML VIAL ONE (03:31)
[2019-01-17] MEDS ORDERED: OLANZapine 10 MG/2 ML VIAL IM ONE (03:35)
[2019-01-17] MEDS ORDERED: NS 1,000 ML IV ONE (05:13)
[2019-01-17 05:40] LABS: PLATELET COUNT 177 10^3/uL (150-400)
[2019-01-17 05:47] LABS: INR 1.05 (0.83-1.16); PROTIME(PATIENT) 13.3 SEC (12.0-15.0)
[2019-01-17] MEDS ORDERED: ONDANSETRON 4 MG/2 ML VIAL IVP PRN (06:19)
[2019-01-17] MEDS ORDERED: FLUMAZENIL 0.5 MG/5 ML MDV IVP PRN (06:23)
[2019-01-17] MEDS ORDERED: NS 500 ML IV PRN (06:23)
[2019-01-17] MEDS ORDERED: LR 1,000 ML IV SCH (06:30)
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
[2019-01-17 07:29] LABS: PLATELET COUNT 163 10^3/uL (150-400)
[2019-01-17] MEDS: DEXMEDETOMIDINE HCL 400 MCG in NS 100 ML IV SCH ×3 (07:30→22:10)
[2019-01-17] MEDS: THIAMINE HCL 500 MG in NS 100 ML IV SCH (08:21)
[2019-01-17] MEDS: FAMOTIDINE 20 MG/NACL 50 ML IV SCH ×2 (08:25→22:10)
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
[2019-01-17] MEDS: POTASSIUM Cl (KCl) 100 ML IV SCH ×4 (10:17→18:18)
--- NOTE | 2019-01-17 11:19 | ASMTLACE ---
TOMASA Acuity / Level of Answers: Yes Care: Did the patient have an inpatient admission? # of Emergency department Answers: 5-8 visits in the last 6 months Social determinants Answers: History of substance abuse (ETOH, street drugs, prescription drugs, etc.) Homelessness (street, longterm) Mental health diagnosis (anxiety, depression, pers onality disorders, etc.) Lack of community resources and/or lack of social support (no pcp, lives alone, transportation, tyler d) Score: 20 Date Signed: 01/17/2019 11:18 AM Electronically Signed By:SHOSHANA Woody
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
[2019-01-17] MEDS: LORazepam 2 MG/ML INJ IVP SCH ×2 (12:59→18:16)
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
[2019-01-17] MEDS ORDERED: CLINDAMYCIN 600 MG/DEXTROSE 50 ML IV SCH (14:00)
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
[2019-01-17] MEDS ORDERED: POTASSIUM Cl (KCl) 20 MEQ in D5W LR 1,000 ML IV SCH (14:30)
[2019-01-17] MEDS: ceFAZolin 2 GM/DEXTROSE 100 ML IV SCH ×2 (14:35→22:10)
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
[2019-01-18 00:38] LABS: PLATELET COUNT 145 10^3/uL (150-400)
[2019-01-18] MEDS: LORazepam 2 MG/ML INJ IVP SCH ×2 (00:52→05:26)
[2019-01-18] MEDS: ceFAZolin 2 GM/DEXTROSE 100 ML IV SCH ×3 (05:26→21:12)
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
[2019-01-18] MEDS: FAMOTIDINE 20 MG/NACL 50 ML IV SCH ×2 (08:53→20:13)
[2019-01-18] MEDS: THIAMINE HCL 500 MG in NS 100 ML IV SCH (09:40)
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
[2019-01-18] MEDS: LORazepam 2 MG/ML INJ IVP PRN (21:13)
[2019-01-19 03:59] LABS: HEPATITIS A ANTIBODY IGM (BCH) NEGATIVE (NEGATIVE); HEPATITIS B CORE AB IGM NEGATIVE (NEGATIVE); HEPATITIS B SURFACE ANTIGEN NEGATIVE (NEGATIVE); HEPATITIS C ANTIBODY TOTAL REACTIVE (NEGATIVE)
[2019-01-19] MEDS: ceFAZolin 2 GM/DEXTROSE 100 ML IV SCH ×3 (06:10→22:17)
[2019-01-19] MEDS: THIAMINE HCL 500 MG in NS 100 ML IV SCH (09:34)
[2019-01-19] MEDS: FAMOTIDINE 20 MG/NACL 50 ML IV SCH ×2 (09:34→21:17)
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
[2019-01-19] MEDS ORDERED: LR 1,000 ML IV ONE (15:06)
[2019-01-19] MEDS ORDERED: LIDO/EPI 1% **Not for Epidural 20 ML MDV ONE (15:26)
[2019-01-19] MEDS ORDERED: BUPIVACAINE/EPI 0.5% 30 ML SDV ONE (15:26)
[2019-01-19] MEDS ORDERED: CHLORHEXIDINE GLUC HIBICLENS 118 ML BTL TP ONE (15:35)
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
[2019-01-19] MEDS ORDERED: fentaNYL 250 MCG/5 ML INJ ONE (16:25)
[2019-01-19] MEDS ORDERED: DEXAMETHASONE 4 MG/ML VIAL ONE (16:25)
[2019-01-19] MEDS ORDERED: ROCURONIUM 50 MG/5 ML VIAL ONE (16:25)
[2019-01-19] MEDS ORDERED: PROPOFOL/EMULSION 500 MG/50 ML BOTTLE IV ONE (16:25)
[2019-01-19] MEDS ORDERED: PHENYLEPHRINE HCL 100 MCG/ML SYR ONE (16:51)
[2019-01-19] MEDS: CHLORHEXIDINE GLUCONATE 15 ML UDL ONE ×2 (17:25→18:07)
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
[2019-01-19] MEDS ORDERED: fentaNYL 100 MCG/2 ML INJ ONE (18:41)
[2019-01-19] MEDS ORDERED: ESMOLOL HCL 100 MG/10 ML VIAL IV ONE (19:01)
[2019-01-19] MEDS ORDERED: ONDANSETRON 4 MG/2 ML VIAL ONE (19:10)
--- NOTE | 2019-01-19 20:53 | POSTOPPROG ---
Post Op Note Date of Operation: 01/19/19 Surgeon: Arin Ibarra Documentation Manager: n/a Anesthesiologist: Robert Hayes MD Anesthesia: GET(General Endotracheal) Pre-op Diagnosis: mandibular right PS and L ramus fx Post-op Diagnosis: same Indication: displaced fractures Procedure: ORIF of mandibular R PS and L ramus Findings: displaced fractures Inf/Abcess present in the surg proc area at time of surgery?: No Depth: Deep Incisional (Fascial) EBL: 50-100 Total fluids administered: see Anesthesia Record Bowel Protocol: No Clean Closure Performed: No (open mandibular R PS fracture)
[2019-01-19] MEDS ORDERED: NALOXONE HCL 0.4 MG/ML INJ IVP PRN (21:15)
[2019-01-19] MEDS ORDERED: fentaNYL 100 MCG/2 ML INJ IVP PRN (21:15)
[2019-01-19] MEDS ORDERED: DIAZEPAM 10 MG/2 ML SYR IVP PRN (21:15)
[2019-01-19] MEDS ORDERED: HYDROmorphONE/DILAUDID 1 MG/ML INJ IVP PRN (21:15)
--- NOTE | 2019-01-19 21:16 | POSTANESTH ---
Post Anesthetic Evaluation Cardiovascular Status: Normal, Stable Respiratory Status: Normal, Stable Level of Consciousness/Mental Status: Can Participate in Eval Pain Control: Adequate, Prn Tx Ordered Nausea/Vomiting Control: Adequate, Prn Tx Ordered Complications Possibly Related to Anesthesia: None Noted
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
[2019-01-20] MEDS: LORazepam 2 MG/ML INJ IVP PRN (03:18)
[2019-01-20] MEDS: ceFAZolin 2 GM/DEXTROSE 100 ML IV SCH (05:09)
[2019-01-20] MEDS ORDERED: THIAMINE HCL 100 MG TAB PO SCH (06:23)
[2019-01-20 07:52] VITALS: BP 133/92
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
--- NOTE | 2019-01-20 09:31 | ASMTCMCOM ---
CM Note CM Note Notes: MD and JUSTIN alerted CM that pt was wanting to leave AMA. CM met with him and he requested that CM call his "ex love of his life" so see if he could stay with her. CM attempted to call Ms. Lemon [phone] without answer. Pt said he then just wanted to leave AMA. Pt said he finds places to stay and is not worried about where he will stay. I provided him with list of Shelters in [facility] as well as path to home information if needed. Pt reports he is not allowed to return to [facility]. CM attempted to contact [facility] and Araceli from [facility] without answer. CM scheduled pt follow-up appt at [facility] for , January 29 at 2:20pm and provided that to him as well as a shirt from CM clothing closet. RN attempted to provide education about medical care and pt appeared receptive. Pt left AMA despite education from JUSTIN, , and RN about importance of staying. Date Signed: 01/20/2019 09:30 AM Electronically Signed By:MISAEL Gage
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
== END 2019-01-20 09:30 | disposition left against medical advice (07) | DRG 92 ==
LOC: EDUNIT# → F2N 06:07
PROVIDERS: ADMIT Surgery; ATTEND Surgery
PROC: 0NSV04Z Reposition Left Mandible with Internal Fixation Device, Open Approach (ICD-10-PCS; principal; 2019-01-19 15:15)
DX: S02.66XB Fracture of symphysis of mandible, initial encounter for open fracture (principal); S02.642A Fracture of ramus of left mandible, initial encounter for closed fracture; S02.40CA Maxillary fracture, right side, initial encounter for closed fracture; S02.40DA Maxillary fracture, left side, initial encounter for closed fracture; S12.600A Unspecified displaced fracture of seventh cervical vertebra, initial encounter for closed fracture; Y04.0XXA Assault by unarmed brawl or fight, initial encounter; Y92.830 Public park as the place of occurrence of the external cause; G93.40 Encephalopathy, unspecified; R45.1 Restlessness and agitation; F10.229 Alcohol dependence with intoxication, unspecified; E87.6 Hypokalemia; F31.9 Bipolar disorder, unspecified; F17.210 Nicotine dependence, cigarettes, uncomplicated; Z59.0 Homelessness
CPT/HCPCS: 80305; 92610-GN; C1713; G0472; G0480; J0690; J1100; J2060; J2250; J2270; J2370; J2405; J2704; J3010; J3411; J3480

== ENCOUNTER 2019-01-20 20:10 | Inpatient (IN) | payer MEDICAID | END 2019-01-24 11:10 | disposition home or self-care (01) | LOC: F1N 01-21 00:03 ==